=== PATIENT | female | born 1985 | race Two or more races ===

== ENCOUNTER → 2018-08-15 | Outpatient (CLI) | payer SELFPAY ==
--- NOTE | 2018-08-15 16:15 | RADIOLOGY REPORT (SQ) ---
EXAM DESCRIPTION: U/S [id number] TRNABD 1GES W/ODOP COMPLETED DATE/TIME: 08/15/2018 3:13 pm REASON FOR STUDY: Z34.81 ENCOUNTER FOR SUPRVSN OF NORMAL , FIRST TRIMESTER Z34.81 ENCOUNTE R FOR SUPRVSN OF NORMAL , FIRST TRIM COMPARISON: None. TECHNIQUE: Transabdominal static and realtime grayscale images acquired of the pelvis. Additional se lected spectral and color Doppler images recorded. All images stored on PACs. bHCG: Not applicable. CLINICAL DATES: Uncertain LIMITATIONS: None FINDINGS: FETUS: Single Living intrauterine . ULTRASOUND EGA: 15 weeks 1 day ULTRASOUND BRANDO: 02/05/2019 EFW: Not calculated. BPD: 2.9 CM. FHR: 157 beats per minute. SURVEY: No visualized anomalies. Four-chamber heart and three-vessel cord cannot be confirmed. The kidneys, spine, and brain were not well seen. AMNIOTIC FLUID: Adequate amount. PLACENTA: Anterior. SUBCHORIONIC BLEED: No SIZE OF BLEED: Not applicable. UTERUS: No masses. No anomalies. CERVICAL LENGTH: 2.6 cm. Closed. RIGHT ADNEXA: Ovary not seen. No adnexal free fluid. No adnexal masses. LEFT ADNEXA: Normal ovary with normal vascular flow. 2.9 x 1.6 x 2 cm. No adnexal free fluid. No adnexal masses. FREE FLUID: None. OTHER: No other significant finding. IMPRESSION: Live intrauterine gestation of 15 weeks 1 day. Anatomical survey is incomplete. No ano malies are seen. 2nd trimester. TECHNICAL DOCUMENTATION: JOB ID: [id number] [employer]- All Rights Reserved rev Reading location - IP/workstation name: [email or web address]
== END ==
LOC: RAD 14:04
PROVIDERS: ATTEND Midwife
DX: Z34.82 Encounter for supervision of other normal pregnancy, second trimester (principal)
CPT/HCPCS: 76801

== ENCOUNTER → 2018-09-11 | Outpatient (CLI) | payer SELFPAY ==
--- NOTE | 2018-09-11 17:04 | RADIOLOGY REPORT (SQ) ---
EXAM DESCRIPTION: U/S OB 14+ TRNABD 1GES W/O DOP COMPLETED DATE/TIME: 09/11/2018 1:49 pm REASON FOR STUDY: Z34.82 ENCOUNTER FOR SUPRVSN OF NORMAL , SECOND TRIMESTER Z34.82 ENCOUNT ER FOR SUPRVSN OF NORMAL , SECOND TRI COMPARISON: 08/15/2018 TECHNIQUE: Static and Dynamic grayscale imaging performed of gravid uterus using transabdominal appr oach. Additional selected color Doppler and spectral images recorded. All stored on PACS. LIMITATIONS: None. FINDINGS: FETUSES SEEN:1 EGA: 18 weeks 6 days Calculated using BPD,FL,HC,AC documented on images. No discrepancy with clinica l dates. BRANDO: 02/06/2019 EFW: 252+/- 37 grams PERCENTILE: Not calculated. LVP: 6 cm PLACENTA: Anterior. Marginal placenta previa. GRADE: I PRESENTATION: Transverse. ANATOMY: HEART RATE: 144 beats per minute. FOUR CHAMBER HEART: Visualized. THREE VESSEL CORD: Yes. CORD INSERTION: Visualized. KIDNEYS AND BLADDER: Visualized. Appear normal. STOMACH: Visualized. Appears normal. SPINE: Normal as visualized. BRAIN AND LATERAL VENTRICLES: Visualized. Appear normal. OTHER: No other significant finding. MATERNAL ADNEXA: Maternal ovaries not visualized. CERVICAL LENGTH: 3.9 cm. Closed. OTHER: No other significant finding. IMPRESSION: Live intrauterine of 18 weeks 6 days. No anomalies. There is a margina l placenta previa at this time. Follow-up is recommended before delivery. Trimester of : Second trimester - 13 weeks 1 day to 27 weeks 6 days. TECHNICAL DOCUMENTATION: JOB ID: [id number] [employer]- All Rights Reserved Reading location - IP/workstation name: [email or web address]
== END ==
LOC: RAD 12:56
PROVIDERS: ATTEND Midwife
DX: Z34.82 Encounter for supervision of other normal pregnancy, second trimester (principal)
CPT/HCPCS: 76805

== ENCOUNTER 2019-02-01 05:30 | Inpatient (IN) | payer SELFPAY ==
[2019-01-31 10:49] LABS: APPEARANCE,URINE CLOUDY; BILIRUBIN,URINE NEGATIVE (NEGATIVE); COLOR,URINE YELLOW; GLUCOSE, URINE NEGATIVE (NEGATIVE); KETONES,URINE NEGATIVE (NEGATIVE); LEUKOCYTE ESTERASE,URINE LARGE (NEGATIVE); NITRITE,URINE NEGATIVE (NEGATIVE); PROTEIN,URINE 30 mg/dL (NEGATIVE); URINE SPECIFIC GRAVITY 1.016; UROBILINOGEN,URINE NEGATIVE mg/dL (<2.0)
[2019-01-31 10:50] LABS: ABSOLUTE BASOPHILS # (AUTO) 0.1 10^3/uL (0.0-0.2); ABSOLUTE EOSINOPHILS # (AUTO) 0.1 10^3/uL (0.0-0.6); ABSOLUTE LYMPHOCYTES (AUTO) 1.6 10^3/uL (0.5-4.7); ABSOLUTE MONOCYTES (AUTO) 0.4 10^3/uL (0.1-1.4); ABSOLUTE NEUT (AUTO) 5.3 10^3/uL (1.7-8.2); BASOPHILS % (AUTO) 0.7 % (0-2); EOSINOPHILS % (AUTO) 0.7 % (0-6); HEMATOCRIT 33.8 % (36.0-47.0); HEMOGLOBIN 11.2 g/dL (12.0-15.5); LYMPHOCYTES % (AUTO) 21.7 % (13-45); MEAN CORPUSCULAR HEMOGLOBIN 27.4 pg (27.0-33.4); MEAN CORPUSCULAR HGB CONC 33.1 g/dL (32.0-36.0); MEAN CORPUSCULAR VOLUME 83 fl (80-97); MONOCYTES % (AUTO) 5.2 % (3-13); PLATELET COUNT 204 10^3/uL (150-450); RED BLOOD COUNT 4.08 10^6/uL (3.72-5.28); RED CELL DISTRIBUTION WIDTH 15.2 % (11.5-14.0); SEGMENTED NEUTROPHILS % (AUTO) 71.7 % (42-78); TOTAL CELLS COUNTED % (AUTO) 100 %; WHITE BLOOD COUNT 7.4 10^3/uL (4.0-10.5)
[2019-01-31 11:04] LABS: URINE AMPHETAMINES SCREEN NEGATIVE; URINE BARBITURATES SCREEN NEGATIVE; URINE BENZODIAZEPINES SCREEN NEGATIVE; URINE COCAINE SCREEN NEGATIVE; URINE MARIJUANA (THC) SCREEN NEGATIVE; URINE METHADONE SCREEN NEGATIVE; URINE PHENCYCLIDINE SCREEN NEGATIVE
[2019-01-31 11:13] LABS: ANION GAP 9 (5-19); BLOOD UREA NITROGEN 10 mg/dL (7-20); CALCIUM 9.3 mg/dL (8.4-10.2); CARBON DIOXIDE 22 mmol/L (22-30); CHLORIDE 102 mmol/L (98-107); GLUCOSE 77 mg/dL (75-110); POTASSIUM 3.9 mmol/L (3.6-5.0)
[~2019-02-01 05:30] MED LIST: CEFAZOLIN SODIUM 2 GM in DEXTROSE 5%-WATER 100 ML IV PRN
[2019-02-01] MEDS ORDERED: OXYTOCIN 10 UNIT/ML VIAL ONE (07:17)
[2019-02-01] MEDS ORDERED: KETOROLAC TROMETHAMINE INJ/PF 30 MG/1 ML SDV ONE (07:18)
[2019-02-01] MEDS ORDERED: ACETAMINOPHEN 1,000 MG/100 ML RTUPB IV ONE (07:18)
[2019-02-01] MEDS ORDERED: PHENYLEPHRINE HCL INJ/PF 10 MG/1 ML SDV ONE (07:18)
[2019-02-01] MEDS ORDERED: FENTANYL CITRATE INJ/PF 100 MCG/2 ML AMPUL ONE (07:18)
[2019-02-01] MEDS ORDERED: ONDANSETRON HCL INJ/PF 4 MG/2 ML SDV ONE (07:18)
[2019-02-01] MEDS ORDERED: PROMETHAZINE HCL INJ 25 MG/1 ML VIAL IV PRN ×2 (08:09→09:37)
[2019-02-01] MEDS ORDERED: MEPERIDINE HCL/PF INJ 25 MG/1 ML DISP.SYRIN IV PRN (08:09)
[2019-02-01] MEDS ORDERED: DIPHENHYDRAMINE HCL 50 MG/ML VIAL IV PRN (08:09)
[2019-02-01] MEDS ORDERED: MORPHINE SULFATE 10 MG/ML INJ IV PRN (08:09)
[2019-02-01] MEDS ORDERED: FENTANYL CITRATE INJ/PF 100 MCG/2 ML AMPUL IV PRN ×3 (08:09)
[2019-02-01] MEDS ORDERED: ACETAMINOPHEN 1,000 MG/100 ML RTUPB IV PRN (09:37)
[2019-02-01] MEDS ORDERED: HYDROMORPHONE HCL INJ/PF 2 MG/ML AMPULE IV PRN (09:37)
[2019-02-01] MEDS ORDERED: DIPH/PERTUSS(ACELL)/TETANUS VAC/PF 0.5 ML SYR (>=10YO) IM PRN (09:37)
[2019-02-01] MEDS ORDERED: ACETAMINOPHEN 325 MG TABLET PO PRN (09:37)
[2019-02-01] MEDS ORDERED: RINGERS SOLUTION,LACTATED 1,000 ML IV PRN (09:37)
[2019-02-01] MEDS ORDERED: SIMETHICONE 80 MG TAB.CHEW PO PRN (09:37)
[2019-02-01] MEDS ORDERED: OXYTOCIN/NORMAL SALINE 20 UNIT/1,000 ML RTUINJ IV PRN (09:37)
[2019-02-01] MEDS ORDERED: OXYCODONE-ACETAMINOPHEN 5-325 MG TABLET PO PRN (09:37)
--- NOTE | 2019-02-01 09:42 | PDOC DELIVERY SUMMARY ---
Delivery Summary - Maternal Hx : III Hx Para: II Hx # Term Pregnancies: 2 Number of Living Children: 2 BRANDO: 02/05/19 Gestational Age: 39.3 Risk Factors: Previous Ruptured Membranes: AROM Fluids: Clear - Delivery Labor: Not In Labor Presentation: Vertex Uterine Contraction Monitoring: External Support Person Present: Yes Location: OR : Scheduled Placenta: Within Normal Limits Placenta Description: Normal appearing Number of Vessels (Cord): 3 Nuchal Cord: No Delivery of Placenta Date: 02/01/19 Delivery of Placenta Time: 08:30 Delivery Quantitative Blood Loss (QBL): 625 - Medications Type of Anesthesia:: Spinal - Assess and Care Baby 1 Male Delivery of Infant Date: 02/01/19 Delivery of Time: 08:29 at 1 minute: 8 at 5 minutes: 9 To Nursery At: 08:41 Mode of Transport: Carried - Delivery Personnel Parts Cataloger: EZEQUIEL SEYMOUR Nursery RN: ALONA MAYBERRY RN: RAHEL SHELLEY MD: GABBY ENRIQUE
--- NOTE | 2019-02-01 09:49 | Operative Report ---
Operative Report DATE OF SURGERY: 02/01/19 PREOPERATIVE DIAGNOSIS: 1. Intrauterine at 39-3/7 weeks. 2. Previo us section x1. 3. Group beta strep positive. 4. Desires permanent sterilization. 5. Rh+. 6. Rubella immune POSTOPERATIVE DIAGNOSIS: Same OPERATION: 1. Repeat section via Pfannenstiel. 2. Bilateral tubal occlusion with Filshie clips SURGEON: GABBY MARIE ANESTHESIA: Spinal TISSUE REMOVED OR ALTERED: Placenta COMPLICATIONS: None QUANTITATIVE BLOOD LOSS: 625 INTRAOPERATIVE FINDINGS: Male in a cephalic position; Apgars 8 at 1, 9 at 5 with a weight of 7 pounds 14 ounces; normal-appearing uterus, bilateral fallopian tubes and ovaries PROCEDURE: The patient was taken to the operating room where spinal anesthesia was obtained and found to be adequate. She was then prepped and draped in the normal sterile fashion and placed in the dorsal supine position with a leftward tilt. A Pfannenstiel skin incision was then made and carried through to the underlying layers of the fascia with the scalpel. The fascia was incised in the midline and the incision extended laterally with the Dougherty scissors. The superior aspect of the fascial incision was then grasped with Jose clamps elevated and the underlying rectus muscles dissected off both bluntly and sharply. Attention was then turned to the inferior aspect of the fascial incision which in a similar fashion was grasped, tented up with Jose clamps, and the rectus muscles dissected off both bluntly and sharply. The rectus muscles were then in the midline and the peritoneum was identified and entered both sharply and bluntly. The peritoneal incision was then extended superiorly and inferiorly with good visualization of the bladder. The bladder blade was inserted and the vesicouterine peritoneum identified grasped with [place] pickups and entered sharply with the Metzenbaum scissors. This incision was then extended laterally with the Metzenbaum scissors and a bladder flap created digitally. The bladder blade was then reinserted and the lower uterine segment incised in a transverse fashion with the scalpel. The uterine incision was then extended bluntly and with the bandage scissors. The bladder blade was removed and the 's head was delivered from cephalic presentation atraumatically. A Kiwi vacuum was placed, which popped off twice and was not reapplied. The cord was doubly clamped and cut. The infant was handed off to waiting machine ironer. The placenta was then delivered manually and the uterus exteriorized and cleared of all clots and debris. The uterine incision was then repaired with 0 Vicryl in a running locked fashion. 0-Chromic was used to obtain hemostasis via imbrication of the initial layer. There was bleeding in several places along the uterine incision, in which several strategically placed [id number] were placed for hemostasis. A piece of Surgicel was placed beneath the bladder flap. The bladder flap was then repaired with 3-0 Vicryl in a running fashion. Attention was then turned to the permanent sterilization. The right fallopian tube was identified and held with a Pedro clamp. A Filshie clip was placed in the midportion of the tube. Hemostasis was noted. The same procedure was performed on the left fallopian tube and hemostasis was also noted. The uterus was returned to the patient's abdomen and Interceed was placed overlying the uterine incision, as well as a piece placed vertically on the anterior surface of the uterus, to prevent adhesions. The gutters were cleared of all clots and debris. The peritoneum was closed with 2-0 Vicryl in a running fashion. All operative sites were noted to be hemostatic. The fascia was reapproximated with 0 Vicryl in a running fashion from each lateral edge to the midline. The subcutaneous fat layer was then closed in an interrupted fashion with 3-0 vicryl. The skin was closed with 4-0 Monocryl in a running, subcuticular fashion. The patient tolerated the procedure well. Sponge, lap, needle and instrument counts are correct x 2. 2 g of Ancef were given prior to skin incision. The patient was taken to the recovery area awake and in stable condition.
[2019-02-01] MEDS ORDERED: DIPHENHYDRAMINE HCL 50 MG/ML VIAL ONE (10:30)
[2019-02-01] MEDS: PRENATAL VITAMIN W DHA CAPSULE PO SCH (11:57)
[2019-02-01] MEDS: DOCUSATE SODIUM 100 MG CAPSULE PO SCH ×2 (11:57→18:13)
[2019-02-01] MEDS: IBUPROFEN 800 MG TABLET PO SCH ×3 (13:16→23:50)
[2019-02-01] MEDS ORDERED: INFLUENZA QUAD (6MOS+) 2019-20 VAC 0.5 ML SYR IM ONE (13:32)
[2019-02-01] MEDS ORDERED: KETOROLAC TROMETHAMINE INJ/PF 30 MG/1 ML SDV IV SCH (14:00)
[2019-02-01] MEDS: OXYCODONE-ACETAMINOPHEN 5-325 MG TABLET PO PRN (18:12)
[2019-02-02] MEDS: OXYCODONE-ACETAMINOPHEN 5-325 MG TABLET PO PRN ×2 (05:03→15:38)
[2019-02-02] MEDS: IBUPROFEN 800 MG TABLET PO SCH ×4 (05:03→23:14)
[2019-02-02 06:33] LABS: HEMATOCRIT 27.7 % (36.0-47.0); HEMOGLOBIN 9.2 g/dL (12.0-15.5); MEAN CORPUSCULAR HEMOGLOBIN 27.6 pg (27.0-33.4); MEAN CORPUSCULAR HGB CONC 33.2 g/dL (32.0-36.0); MEAN CORPUSCULAR VOLUME 83 fl (80-97); PLATELET COUNT 159 10^3/uL (150-450); RED BLOOD COUNT 3.33 10^6/uL (3.72-5.28); RED CELL DISTRIBUTION WIDTH 15.1 % (11.5-14.0); WHITE BLOOD COUNT 6.9 10^3/uL (4.0-10.5)
[2019-02-02] MEDS: PRENATAL VITAMIN W DHA CAPSULE PO SCH (09:35)
[2019-02-02] MEDS: DOCUSATE SODIUM 100 MG CAPSULE PO SCH ×2 (09:35→17:25)
--- NOTE | 2019-02-02 15:38 | PDOC PROGRESS REPORT ---
Subjective-OB Progress Note for:: 02/02/19 - POD #1, doing well, up OOB, voiding, O+, Rubella immune, breast and bottlefeeding. s/p Rpt w/ BTL Physical Exam (OB) Vital Signs: Temp Pulse Resp BP Pulse Ox 98.6 F 85 16 123/83 100 02/02/19 15:26 02/02/19 15:26 02/02/19 15:26 02/02/19 15:26 02/02/19 15:26 Intake & Output 02/01/19 02/02/19 02/03/19 06:59 06:59 06:59 Intake Total 400 Output Total 600 Balance -200 Weight 69.4 kg - General General Appearance: Appears well, Alert - PIH/Pre-Eclampsia DTR's: 1 + Clonus: Negative Headache: Absent Epigastric Pain: No Visual Changes: No - Dressing Removed: No Incision: Dressing Closure Type: pressure - Lochia Lochia Amount: Scant < 10 ml Lochia Color: Rubra/Red - Abdomen Description: Soft Hernia Present: No Fundal Description: Firm, Midline Fundal Height: u/u - u/2 - Respiratory Respiratory Status: No respiratory distress Breath sounds: Clear - Cardiovascular Rhythm: Regular Heart Sounds: Normal auscultation - Abdominal Inspection: Normal Distension: No distension Abdominal Notes: +bowel sounds - Genitourinary Genitourinary Note: voiding - Extremities Upper extremity: Normal inspection Lower extremities: Normal inspection - Neurological Cognition: Normal Orientation: AAOx4 - Psychological Associated symptoms: Normal affect, Normal mood - Skin Skin Temperature: Warm Skin Moisture: Dry Objective-Diagnostic Laboratory: 02/02/19 06:10 01/31/19 10:20 02/02/19 06:10 WBC 6.9 RBC 3.33 L Hgb 9.2 L Hct 27.7 L MCV 83 MCH 27.6 MCHC 33.2 RDW 15.1 H Plt Count 159 Assessment and Plan(PN) - Assessment and Plan (1) Status post repeat low transverse section Is this a current diagnosis for this admission?: Yes (2) Tubal ligation status Is this a current diagnosis for this admission?: Yes Plan:: Ambulation encouraged. Routine Post OP/ PP orders - Time Spent with Patient Time with patient: Less than 15 minutes Medications reviewed and adjusted accordingly: Yes - Disposition Anticipated Discharge: Home Within: within 48 hours
[2019-02-03] MEDS: OXYCODONE-ACETAMINOPHEN 5-325 MG TABLET PO PRN ×2 (00:11→16:42)
[2019-02-03] MEDS: IBUPROFEN 800 MG TABLET PO SCH ×2 (06:06→11:44)
[2019-02-03] MEDS: PRENATAL VITAMIN W DHA CAPSULE PO SCH (10:39)
[2019-02-03] MEDS: DOCUSATE SODIUM 100 MG CAPSULE PO SCH (10:39)
--- NOTE | 2019-02-03 10:45 | PDOC DISCHARGE SUMMARY ---
Impression - Admit/DC Date/PCP Admission Date/Primary Care Provider: 02/01/19 05:30 MARIA G HAGAN CNM Discharge Date: 02/03/19 - POD#2, doing well, desires to go home today, O+, Rubella Immune, breast and bottlefeeding. s/p Rpt w/ BTL - Discharge Diagnosis (1) Status post repeat low transverse section Is this a current diagnosis for this admission?: Yes (2) Tubal ligation status Is this a current diagnosis for this admission?: Yes (4) Acute blood loss as cause of postoperative anemia Is this a current diagnosis for this admission?: Yes - Additional Information Resuscitation Status: Full Code Discharge Diet: As Tolerated, Regular Discharge Activity: Activity As Tolerated, No Driving, No Lifting Over 10 Pounds, Pelvic Rest [facility]: [facility] [Provider Group] Prescriptions: Ferrous Sulfate 325 mg PO DAILY 30 Days #30 tablet. Ibuprofen [Motrin 800 mg Tablet] 800 mg PO Q6 #60 tablet Oxycodone HCl/Acetaminophen [Percocet 5-325 mg Tablet] 1 tab PO Q4HP PRN #30 tablet PRN Reason: Pain Scale Of 4 Home Medications: 105/Iron/Folic AC/Dha [Prena1 True Combo Pack] 1 each PO ASDIR PRN 01/31/19 Ferrous Sulfate 325 mg PO DAILY 30 Days #30 tablet. 02/03/19 Ibuprofen [Motrin 800 mg Tablet] 800 mg PO Q6 #60 tablet 02/03/19 Oxycodone HCl/Acetaminophen [Percocet 5-325 mg Tablet] 1 tab PO Q4HP PRN #30 ta blet 02/03/19 HPI Reason(s) for Admission: Ceasarean Section-Repeat, Tubal Ligation Procedures: Ultrasound Intrapartum Procedure(s): : Low Cervical, Transverse Hospital Course Hospital Course: normal PP course Results Laboratory Results: WBC 6.9 10^3/uL (4.0-10.5) 02/02/19 06:10 RBC 3.33 10^6/uL (3.72-5.28) L 02/02/19 06:10 Hgb 9.2 g/dL (12.0-15.5) L 02/02/19 06:10 Hct 27.7 % (36.0-47.0) L 02/02/19 06:10 MCV 83 fl (80-97) 02/02/19 06:10 MCH 27.6 pg (27.0-33.4) 02/02/19 06:10 MCHC 33.2 g/dL (32.0-36.0) 02/02/19 06:10 RDW 15.1 % (11.5-14.0) H 02/02/19 06:10 Plt Count 159 10^3/uL (150-450) 02/02/19 06:10 Lymph % (Auto) 21.7 % (13-45) 01/31/19 10:20 [place] % (Auto) 5.2 % (3-13) 01/31/19 10:20 Eos % (Auto) 0.7 % (0-6) 01/31/19 10:20 Baso % (Auto) 0.7 % (0-2) 01/31/19 10:20 Absolute Neuts (auto) 5.3 10^3/uL (1.7-8.2) 01/31/19 10:20 Absolute Lymphs (auto) 1.6 10^3/uL (0.5-4.7) 01/31/19 10:20 Absolute Monos (auto) 0.4 10^3/uL (0.1-1.4) 01/31/19 10:20 Absolute Eos (auto) 0.1 10^3/uL (0.0-0.6) 01/31/19 10:20 Absolute Basos (auto) 0.1 10^3/uL (0.0-0.2) 01/31/19 10:20 Seg Neutrophils % 71.7 % (42-78) 01/31/19 10:20 Sodium 133.1 mmol/L (137-145) L 01/31/19 10:20 Potassium 3.9 mmol/L (3.6-5.0) 01/31/19 10:20 Chloride 102 mmol/L (98-107) 01/31/19 10:20 Carbon Dioxide 22 mmol/L (22-30) 01/31/19 10:20 Anion Gap 9 (5-19) 01/31/19 10:20 BUN 10 mg/dL (7-20) 01/31/19 10:20 Creatinine 0.50 mg/dL (0.52-1.25) L 01/31/19 10:20 Est GFR ( Amer) > 60 (>60) 01/31/19 10:20 Est GFR (MDRD) Non-Af > 60 (>60) 01/31/19 10:20 Glucose 77 mg/dL (75-110) 01/31/19 10:20 Calcium 9.3 mg/dL (8.4-10.2) 01/31/19 10:20 Urine Color YELLOW 01/31/19 10:20 Urine Appearance CLOUDY 01/31/19 10:20 Urine pH 7.0 (5.0-9.0) 01/31/19 10:20 Ur Specific [place] 1.016 01/31/19 10:20 Urine Protein 30 mg/dL (NEGATIVE) H 01/31/19 10:20 Urine Glucose (UA) NEGATIVE mg/dL (NEGATIVE) 01/31/19 10:20 Urine Ketones NEGATIVE mg/dL (NEGATIVE) 01/31/19 10:20 Urine Blood SMALL (NEGATIVE) H 01/31/19 10:20 Urine Nitrite NEGATIVE (NEGATIVE) 01/31/19 10:20 Urine Bilirubin NEGATIVE (NEGATIVE) 01/31/19 10:20 Urine Urobilinogen NEGATIVE mg/dL (<2.0) 01/31/19 10:20 Ur Leukocyte Esterase LARGE (NEGATIVE) H 01/31/19 10:20 Urine WBC (Auto) 78 /HPF 01/31/19 10:20 Urine RBC (Auto) 11 /HPF 01/31/19 10:20 U Hyaline Cast (Auto) 5 /LPF 01/31/19 10:20 Urine Bacteria (Auto) 1+ /HPF 01/31/19 10:20 Squamous Epi Cells Auto 12 /HPF 01/31/19 10:20 Urine Mucus (Auto) RARE /LPF 01/31/19 10:20 Urine Ascorbic Acid NEGATIVE (NEGATIVE) 01/31/19 10:20 Urine Opiates Screen NEGATIVE 01/31/19 10:20 Urine Methadone Screen NEGATIVE 01/31/19 10:20 Ur Barbiturates Screen NEGATIVE 01/31/19 10:20 Ur Phencyclidine Scrn NEGATIVE 01/31/19 10:20 Ur Amphetamines Screen NEGATIVE 01/31/19 10:20 U Benzodiazepines Scrn NEGATIVE 01/31/19 10:20 Urine Cocaine Screen NEGATIVE 01/31/19 10:20 U Marijuana (THC) Screen NEGATIVE 01/31/19 10:20 Blood Type O POSITIVE 01/31/19 10:20 Antibody Screen NEGATIVE 01/31/19 10:20 Plan Health Concerns: none Plan of Treatment: d/c to home, f/u with [facility] in one week for incsision check
[2019-02-03 11:53] VITALS: BP 132/89
== END 2019-02-03 16:50 | disposition home or self-care (01) | DRG 784 ==
LOC: LR 05:30 → 2S 06:10
PROVIDERS: ADMIT Obstetrics & Gynecology; ATTEND Obstetrics & Gynecology
PROC: 0UL70CZ Occlusion of Bilateral Fallopian Tubes with Extraluminal Device, Open Approach (ICD-10-PCS; 2019-02-01)
PROC: 10D00Z1 Extraction of Products of Conception, Low, Open Approach (ICD-10-PCS; principal; 2019-02-01 07:45)
PROC: 3E02340 Introduction of Influenza Vaccine into Muscle, Percutaneous Approach (ICD-10-PCS; 2019-02-03)
DX: O34.211 Maternal care for low transverse scar from previous cesarean delivery (principal); D62 Acute posthemorrhagic anemia; O99.824 Streptococcus B carrier state complicating childbirth; Z30.2 Encounter for sterilization; Z87.891 Personal history of nicotine dependence; Z3A.39 39 weeks gestation of pregnancy; Z37.0 Single live birth; Z23 Encounter for immunization
CPT/HCPCS: 1961; 36415; 59025; 80048; 80307; 81001; 85025; 85027; 86850; 86900; 86901; 90686; 90715; 94799; C1765; J0131; J0690; J1200; J1885; J2370; J2405; J2590; J3010; J3490; J7060